=== PATIENT | female | born 1980 | race Caucasian/White ===

== ENCOUNTER → 2018-10-24 18:17 | Outpatient (REF) | payer SELFPAY | LOC: LAB 18:17 | PROVIDERS: Visit Provider Physician Assistant Medical | DX: R19.7 Diarrhea, unspecified (principal) | CPT/HCPCS: 87177 ==

== ENCOUNTER → 2022-05-04 07:51 | Outpatient (CLI) | payer OTHER, SELFPAY ==
--- NOTE | 2022-05-04 | DI.US.S_ITS ---
PROCEDURE: US ABDOMEN LIMITED INDICATIONS: SEVERE SACROCOCCYX PAIN. ?ABSCESS TECHNIQUE: Real-time focused scanning was performed of the abdomen, with image documentation. Color Doppler was also utilized. COMPARISON: None. FINDINGS: Scanning is performed at the area of clinical concern involving the superior gluteal cleft. At this site, no fluid collections are seen. No masses are seen. No abnormal vascularity. IMPRESSION: Negative study. No abscess. Dictated by: Jose Whitley M.D. on 05/04/2022 at 11:34 Approved by: Jose Whitley M.D. on 05/04/2022 at 11:34
== END ==
PROVIDERS: PCP Specialist; Referring Provider Specialist; Visit Provider Specialist
DX: M53.3 Sacrococcygeal disorders, not elsewhere classified (principal)
CPT/HCPCS: 76705

== ENCOUNTER → 2024-07-17 07:42 | Outpatient (CLI) | payer BC, SELFPAY ==
--- NOTE | 2024-07-17 07:44 | DI.US.S_ITS ---
PROCEDURE: US PELVIC COMPLETE INDICATIONS: ABDOMINAL BLOATING/DISTENSION TECHNIQUE: Real-time scanning was performed of the pelvic organs, with image documentation. Additional endovaginal scanning was necessary due to incomplete visualization of the adnexal and endometrial structures by transabdominal scanning. COMPARISON: None. FINDINGS: Uterus: Uterus is anterior and normal in size at 7 x 4.2 x 4.8 cm. The myometrium is heterogeneous. 1.9 x 1.4 x 1.9 cm intramural fibroid is seen in right anterior myometrium. The endometrium measures 5.2 mm combined thickness. No endometrial mass or fluid is seen. Ovaries: The right ovary is not visualized. The left ovary measures 1.9 x 2.3 x 3.2 cm, with a calculated ovarian volume of 7.4 cc. Less than 12 follicles can be seen in left ovary. No adnexal masses are seen. Other: No pathologic free abdominal or pelvic fluid. IMPRESSION: 1. Single uterine fibroid measures 1.9 cm in size as above. No endometrial mass or fluid. 2. Normal appearing left ovary. Right ovary is not visualized due to overlying bowel gas. No gross adnexal mass. We strive to produce accurate, complete, and clear reports of imaging services. To assist us in improving patient care, this report was composed using standard report templates and voice recognition software. Therefore, it may contain abnormal punctuation, insertions and/or omissions. Occasional wrong-word or sound-alike substitutions may occur. Though we review the report and make efforts to correct it, we do recommend that the report be read carefully in proper context to recognize any text inaccuracies. Dictated by: Bayron Meyer M.D. on 07/17/2024 at 11:54 Approved by: Bayron Meyer M.D. on 07/17/2024 at 11:56
--- NOTE | 2024-08-20 | PATH_ITS ---
Note [facility] Accession Number: [id number] TESTS RESULT FLAG UNITS REF RANGE LAB Clinician Provided Cytology Information No. of containers..02 Previously Prepared Cytology Slide 35 Unknown Storage/container code(s) Source: RIGHT THYROID NODULE #2 DIAGNOSIS: RIGHT THYROID NODULE #2 ATYPIA OF UNDETERMINED SIGNIFICANCE. B[place] CATEGORY III. ATYPIA OF UNDETERMINED SIGNIFIANCE - NUCLEAR ATYPIA. MOLECULAR STUDIES PENDING; RESULTS WILL BE REPORTED SEPARATELY. Pathologist ICD10: R89.6 Signed out by: Goldie Wilkes MD, Pathologist NPI- [id number] Performed by: Dane Calhoun, Necktie Maker ([facility]) Gross description: 30 CC, PINK, CLEAR RECEIVED IN CYTOLYT WHITE CAP CONTAINER RECEIVED 6 ALCOHOL FIXED SLIDES IN 2 GREEN CAP COFFINS RECEIVED 6 FIXED STAINED SLIDES IN 2 COFFINS RECEIVED 1 RNA VIAL. : 09-18-24 VICKIE /ARRON 08/21/2024 1242 Local FLAG LEGEND: L-Low Normal,H-High Normal,LL-Alert Low,HH-Alert High <-Panic Low,>-Panic High,A-Abnormal,AA-Critical Abnormal Performed at: [address] [facility] [address], [place] [address] Forrest Sharma MD, Specimen Comment: A duplicate report has been generated due to demographic update Specimen Comment: of the patient's Date of , Age, Gender, and/or Specimen Date. Specimen Comment: Please review patient results, reference intervals, and calculated Specimen Comment: results that may have been affected by this change. Performed at: [address] [address], [place], [place] [id number] MD Forrest Sharma MD Phone: [phone]
== END ==
PROVIDERS: PCP Specialist; Referring Provider Nurse Practitioner Family; Visit Provider Nurse Practitioner Family
DX: D25.1 Intramural leiomyoma of uterus (principal); R14.0 Abdominal distension (gaseous)
CPT/HCPCS: 76830; 76856

== ENCOUNTER 2025-05-19 12:08 | Day surgery (SDC) | payer BC, SELFPAY ==
--- NOTE | 2025-05-19 | PATH_ITS ---
[facility] Accession Number: [id number] No. of containers..02 Tissue . 01 Material submitted: . PART A: gastrointestinal site - ANTRUM PART B: colon - SIGMOID POLYP . 01 Clinical history: . A: R/O H.PYLORI . 01 Diagnosis: A. GASTRIC ANTRUM, BIOPSY: Gastric antral mucosa with no diagnostic abnormality. No evidence of Helicobacter organisms on H/E stain. Negative for intestinal metaplasia. Negative for dysplasia or malignancy. . B. SIGMOID COLON POLYP: Hyperplastic polyp. [facility] 05/28/2025 1223 Local . 01 Electronically signed: . Juan M Alvarado MD, PhD, Pathologist NPI- [id number] . 01 Gross description: . Received are two formalin-filled containers both labeled with the patient's name. . A. In a container labeled 1. Antrum, are two fragments of bullock, soft tissue which range in size from 0.1 x 0.1 x 0.1 cm to 0.3 x 0.1 x 0.1 cm. All fragments are totally submitted in cassette A1. B. In a container labeled 2. Sigmoid polyps x2, are two fragments of bullock, soft tissue which range in size from 0.2 x 0.1 x 0.1 cm to 0.3 x 0.2 x 0.2 cm. All fragments are totally submitted in cassette B1. ([id number]) /[facility] 05/26/2025 0846 Local . 01 Pathologist provided ICD-10: R10.13, K63.5 . 01 CPT . 279132, [id number] Specimen Comment: A courtesy copy of this report has been sent to [facility] Pathology Performed at: [address] [address], [place], [place] [id number] MD Forrest Sharma MD Phone: [phone]
--- NOTE | 2025-05-19 06:53 | PM.PREOP ---
Pre-operative Note Interval Note History & Physical reviewed/Exam performed by Physician: Yes Changes to H&P: No ASA Class (for procedural sedation): I
[2025-05-19 13:22] VITALS: BP 126/86; PULSE 18; RESP 97; TEMP 36.4
--- NOTE | 2025-05-19 13:53 | PM.OP.EC ---
Operative Date/Time/Diagnoses Date of procedure: 05/19/25 Time of procedure: 14:20 Pre-op diagnosis: Regurgitation, screening colonoscopy Post-op diagnosis: other (mild antral gastritis, sigmoid polyps) Procedure & Clinicians Study performed: EGD, colonoscopy with biopsy Same procedure(s) as scheduled: Yes Indications: 44yo with regurgitaiton, UGI symptoms, screening colonoscopy Surgeon: Bill Strong Anesthesia Type: MAC +/- Procedure Notes SCOAP/Timeout: Performed Procedure in detail: EGD Informed consent was obtained. The procedure, its risks, benefits, and alternatives were discussed. Patient understood and agreed to proceed. The patient was placed in the left lateral decubitus position with head elevated. Sedation given per anesthesia. The video endoscope was inserted into the oropharynx and guided under direct vision into the esophagus, stomach, and duodenum which were carefully examined. The scope was retroflexed to examine the hiatus and gastroesophageal junction. Antral biopsies were obtained for Helicobacter pylori. The patient tolerated the procedure very well. There were no apparent complications. Significant EGD findings: Z-line noted at: 42cm Mild to mod antral gastritis, biopsies taken for hpylori Several small gastric erosions with old blood Duodenum normal No hiatal hernia or esophagitis, esophagus normal No gastric mass Colonoscopy Patient placed in left lateral recumbent position. Time out was performed. Procedural sedation was administered by anesthesia. Examination began with a thorough inspection of the perianal area. There was no evidence of fissures, fistulae, external hemorrhoids or cutaneous malignancy. The colonoscope was then placed into the rectum and the lumen was insufflated with carbon dioxide. The scope was carefully advanced forward. Ultimately the cecum was intubated and confirmed by identification of the ileocecal valve, the appendiceal orifice and the confluence of the taenia. The scope was then slowly withdrawn examining the colon thoroughly in all directions. In the rectum, retroflexion of the scope was performed for inspection of the distal rectum and anal canal. ?Significant colonoscopy findings: ?1. Quality of the preparation-good, [place] 2-3, improved with irrigation/suction ?2. Two small, 3mm, sessile, benign appearing sigmoid polyps, biopsied with cold biopsy forceps and retrieved for pathology Scope withdrawal time: 10 minutes Findings: gastritis and polyp Specimen(s): other (antral biopsies for hpylori, sigmoid polyps) Complications: none Impression: Antral gastritis, biopsies pending for hpylori Sigmoid polyps, path pending Post-procedure Recommendations: Colonscopy in 10 years Plan for aftercare: PACU then home Follow up: as needed Disposition: PACU
[2025-05-19 14:19] VITALS: BP 108/68; PULSE 73; RESP 15; TEMP 36.2; O2SAT 97
[2025-05-19 14:25] VITALS: BP 112/70; PULSE 70; RESP 15; O2SAT 98
[2025-05-19 14:30] VITALS: BP 111/72; PULSE 66; RESP 16; O2SAT 100
[2025-05-19 14:35] VITALS: BP 114/72; PULSE 72; RESP 18; O2SAT 100
[2025-05-19 14:41] VITALS: BP 117/73; PULSE 66; RESP 17; O2SAT 99
== END 2025-05-19 14:55 | disposition home or self-care (01) ==
PROVIDERS: PCP Nurse Practitioner Family; Referring Provider Surgery; Visit Provider Surgery
PROC: 0DJ08ZZ Inspection of Upper Intestinal Tract, Via Natural or Artificial Opening Endoscopic (ICD-10-PCS; CPT 43239; principal; 2025-05-19 13:15)
PROC: 0DJD8ZZ Inspection of Lower Intestinal Tract, Via Natural or Artificial Opening Endoscopic (ICD-10-PCS; CPT 45378; 2025-05-19 13:15)
DX: Z12.11 Encounter for screening for malignant neoplasm of colon (principal); R11.10 Vomiting, unspecified; K29.50 Unspecified chronic gastritis without bleeding; K25.9 Gastric ulcer, unspecified as acute or chronic, without hemorrhage or perforation; K63.5 Polyp of colon
CPT/HCPCS: 43239; 45380; 82962; J2704